=== PATIENT | female | born 1970 | race Caucasian/White ===

== ENCOUNTER → 2017-02-03 | Outpatient (CLI) | payer MEDICAID | LOC: FIMAGING 10:12 | PROVIDERS: ATTEND Obstetrics & Gynecology | DX: Z12.31 Encounter for screening mammogram for malignant neoplasm of breast (principal) | CPT/HCPCS: G0202 ==

== ENCOUNTER 2017-12-14 17:51 | Emergency (ER) | payer MEDICAID ==
[2017-12-14 17:56] VITALS: BP 187/159
--- NOTE | 2017-12-14 18:16 | EDPHY ---
H & P Stated Complaint: Depression Time Seen by Provider: 12/14/17 18:11 HPI/ROS: CHIEF COMPLAINT: Depression HISTORY OF PRESENT ILLNESS: The patient is a 47-year-old female who comes to the emergency department for with a history of bipolar stating that she feels depressed. She denies suicidal thoughts or tendencies. She states that she is having psychological pain. She states that she has seen at [facility] by Dr. Zambrano who recently discontinued her lithium. She had only been on it for couple of days but did not like the side effects. She is taking her other medications. She came here to talk to a therapist. She brought herself here. Severity: Moderate Modifying factors: None REVIEW OF SYSTEMS: Constitutional: denies: chills, fever, recent illness, recent injury EENTM: denies: blurred vision, double vision, nose congestion Respiratory: denies: cough, shortness of breath Cardiac: denies: chest pain, irregular heart rate, lightheadedness, palpitations Gastrointestinal/Abdominal: denies: abdominal pain, diarrhea, nausea, vomiting, blood streaked stools Genitourinary: denies: dysuria, frequency, hematuria, pain Musculoskeletal: denies: joint pain, muscle pain Skin: denies: lesions, rash, jaundice, bruising Neurological: denies: headache, numbness, paresthesia, tingling, dizziness, weakness Hematologic/Lymphatic: denies: blood clots, easy bleeding, easy bruising Immunologic/allergic: denies: HIV/AIDS, transplant 10 systems reviewed and negative except as noted EXAM: GENERAL: Well-appearing, well-nourished and in no acute distress. HEAD: Atraumatic, normocephalic. EYES: Pupils equal round and reactive to light, extraocular movements intact, sclera anicteric, conjunctiva are normal. ENT: TMs normal, nares patent, oropharynx clear without exudates. Moist mucous membranes. NECK: Normal range of motion, supple without lymphadenopathy or JVD. LUNGS: Breath sounds clear to auscultation bilaterally and equal. No wheezes rales or rhonchi. HEART: Regular rate and rhythm without murmurs, rubs or gallops. ABDOMEN: Soft, nontender, normoactive bowel sounds. No guarding, no rebound. No masses appreciated. BACK: No CVA tenderness, no spinal tenderness, step-offs or deformities EXTREMITIES: Normal range of motion, no pitting or edema. No clubbing or cyanosis. NEUROLOGICAL: Cranial nerves II through XII grossly intact. Normal speech, normal gait. 5/5 strength, normal movement in all extremities, normal sensation , normal reflexes PSYCH: Tearful, angry SKIN: Warm, dry, normal turgor, no visible rashes or lesions. Source: Patient - Personal History LMP (Females 10-55): Now Current Tetanus/Diphtheria Vaccine: Yes Current Tetanus Diphtheria and Acellular Pertussis (TDAP): Yes - Medical/Surgical History Hx Asthma: No Hx Chronic Respiratory Disease: No Hx Diabetes: No Hx Cardiac Disease: No Hx Renal Disease: No Hx Cirrhosis: No Hx Alcoholism: No Hx HIV/AIDS: No Hx Splenectomy or Spleen Trauma: No Other PMH: Anxiety, BiPolar. knee surg. Chronic back pain - Family History Significant Family History: No pertinent family hx - Social History Smoking Status: Never smoked Alcohol Use: Occasionally Drug Use: None, Marijuana Constitutional: Initial Vital Signs Temperature (C) 36.9 C 12/14/17 17:54 Heart Rate 96 12/14/17 17:54 Respiratory Rate 16 12/14/17 17:54 Blood Pressure 187/159 H 12/14/17 17:54 O2 Sat (%) 97 12/14/17 17:54 O2 Delivery Mode Room Air Allergies/Adverse Reactions: DUST/MOLD Allergy (Mild, Uncoded 12/14/17 17:53) SNEEZING FEATHER Allergy (Mild, Uncoded 12/14/17 17:53) SNEEZING Home Medications: Medication Instructions Recorded Abilify 12/14/17 Clonazepam 12/14/17 Medical Decision Making ED Course/Re-evaluation: In attempts to prepare the patient for what would happen in the ER I told her we would obtain blood work and urinalysis and once that is clear will have Mental Health speak with her. I told her that depending on how busy they are this could take anywhere from 2 hr to 10 hr. At this point she became very angry and stated she did not want to wait for 10 hr and stormed out of the department. She states that she is in severe psychological pain and cannot wait for that long. She is not on a hold. She denies suicidality. We did give her information had to go to the crisis Center. Differential Diagnosis: Partial list of the Differential diagnosis considered include but were not limited to; depression, anxiety, suicidality and although unlikely based on the history and physical exam, I also considered head injury, infection. Departure - Departure Disposition: Against Medical Advice Clinical Impression: Bipolar 1 disorder Condition: Fair Instructions: Bipolar Disorder (ED) Referrals: [facility] BEAN [Primary Care Provider] - As per Instructions
== END 2017-12-14 18:20 | disposition left against medical advice (07) ==
DX: F31.30 Bipolar disorder, current episode depressed, mild or moderate severity, unspecified (principal); Z53.29 Procedure and treatment not carried out because of patient's decision for other reasons

== ENCOUNTER → 2018-02-07 | Outpatient (CLI) | payer MEDICAID | LOC: FIMAGING 13:15 | PROVIDERS: ATTEND Family Medicine | DX: Z12.31 Encounter for screening mammogram for malignant neoplasm of breast (principal) ==